=== PATIENT | male | born 1990 | race Caucasian/White ===

== ENCOUNTER 2022-02-25 14:57 | Emergency (ER) | payer SELFPAY ==
--- OUTSIDE RECORDS SUMMARY | 2022-02-25 15:00 | XMS REPORT | Continuity of Care Document ---
:1990 Author Organization [facility] t Address [address] [place] [address] Care Team Providers Name Role Phone HARESH VICK Attending Clinician Unavailable HARESH VICK Admitting Clinician Unavailable Problems This patient has no known problems. Allergies, Adverse Reactions, Alerts This patient has no known allergies or adverse reactions. Social History Smoking Status Start Date Stop Date Source Current some day smoker [facility] (LUF/GUME/SA) Medications This patient has no known medications. Vital Signs Vital Name Observation Time Observation Value Comments Source BP Systolic 2018-07-19 15:35:00 127 mm[Hg] [facility] (LUF/GUME/SA) BP Diastolic 2018-07-19 15:35:00 81 mm[Hg] [facility] (LUF/GUME/SA) Height 2018-07-19 15:35:00 66 in [facility] (LUF/GUME/SA) Weight Measured 2018-07-19 15:35:00 116.84 lbs [facility] (LUF/GUME/SA) BMI (Body Mass Index) 2018-07-19 15:35:00 19 kg/m2 [facility] (LUF/GUME/SA) Body Temperature 2018-07-19 15:35:00 98.9 F [facility] (LUF/GUME/SA) Pulse Rate 2018-07-19 15:35:00 117 /min [facility] (F/GUME/SA) Respiratory Rate 2018-07-19 15:35:00 18 /min [facility] (F/GUME/SA) O2% BldC Oximetry 2018-07-19 15:35:00 99 % [facility] (F/GUME/SA) Procedures This patient has no known procedures. Encounters Start End Encounter Admission Attending Care Care Encounter Source Date/Time Date/Time Type Type Clinicians Facility Department ID 2018-07-19 2018-07-19 UNS DISLOC 1 N[facility], [facility] [id number] [facility] 15:16:00 18:20:00 [facility]DR [facility] INITIAL [address] V/SA) [place] [address] Results Test Description Test Time Test Comments Results Result Sourc e Comments XR SHOULDER 2018-07-19 er10 Procedure: XR [facility] E[facility] T MINIMUM 2 VIEWS 17:10:51 SHOULDER MINIMUM 2 T EXAS VIEWS Exam Date: 07/19/2018 4:12 PMOrdering Provider: HARESH Rodriguezinical Indication: [id number]: Disorder of shoulderComparison: None.Findings:Bones are in normal alignment. Joint spaces preserved. No acute fracture ordislocation. No radio-opaque foreign body.Impression:No acute fracture or dislocation. No radio-opaque foreign body.This final report was electronically signed by Dr Darius Duvall DO 07/19/20185:04 PMDictated By: JORDON DUVALLate: 07/19/2018 17:04
--- NOTE | 2022-02-25 15:50 | RAD REPORT ---
EXAM DESCRIPTION: RAD - Shoulder Left 2 View - 02/25/2022 3:40 pm CLINICAL HISTORY: Left shoulder pain FINDINGS: No fracture or dislocation is seen.
--- NOTE | 2022-02-25 16:27 | EDPHYS ---
Physician Documentation [facility] Name: Sunny Sanders Age: 31 yrs Sex: Male : 1990 Arrival Date: 02/25/2022 Time: 15:03 Bed 12 Private MD: OMAR Physician Laron Choi HPI: 02/25 15:16 This 31 yrs old Male presents to ER via Ambulatory with complaints of Dislocated jmm shoulder. 15:16 The patient or guardian complains of an injury, pain. Is a 31-year-old male with no jmm known chronic medical conditions presents emerged department with complaints of left shoulder pain. Patient is concerned that his shoulder may still be dislocated. Yesterday he dislocated his shoulder and attempted to reduce it but still has pain to the left shoulder.. Historical: - Allergies: 15:24 No Known Allergies; kb3 - Home Meds: 15:24 None [Active]; kb3 - PMHx: 15:24 None; kb3 - PSHx: 15:24 None; kb3 - Immunization history:: Adult Immunizations up to date, Client reports having NOT received the Covid vaccine. - Social history:: Smoking status: Patient reports the use of cigarette tobacco products, smokes one-half pack cigarettes per day. ROS: 15:16 Constitutional: Negative for fever, chills, and weight loss, Cardiovascular: Negative jmm for chest pain, palpitations, and edema, Respiratory: Negative for shortness of breath, cough, wheezing, and pleuritic chest pain. 15:16 MS/extremity: Positive for injury or acute deformity. 15:16 All other systems are negative. Exam: 15:16 Constitutional: This is a well developed, well nourished patient who is awake, alert, jmm and in no acute distress. Head/Face: atraumatic. Eyes: EOMI, no conjunctival erythema appreciated ENT: Moist Mucus Membranes Neck: Trachea midline, Supple Chest/axilla: Normal chest wall appearance and motion. Cardiovascular: Regular rate and rhythm. No edema appreciated Respiratory: Normal respirations, no respiratory distress appreciated Abdomen/GI: Non distended Back: Normal ROM Skin: General appearance color normal 15:16 Musculoskeletal/extremity: Left shoulder mildly tender to palpation, painful abduction, full shot peen operator strength, full radial pulse, neurovascular intact.. 15:16 Neuro: Orientation: is normal, Mentation: is normal, Memory: is normal. 15:16 Psych: Behavior/mood is pleasant, cooperative. Vital Signs: 15:23 BP 117 / 77; Pulse 85; Resp 20; Pulse Ox 99% ; Weight 55.34 kg; Height 5 ft. 6 in. kb3 (167.64 cm); Pain 3/10; 15:23 Body Mass Index 19.69 (55.34 kg, 167.64 cm) kb3 MDM: 15:16 Patient medically screened. [facility] 15:52 Data reviewed: vital signs, nurses notes. Counseling: I had a detailed discussion with [facility] the patient and/or guardian regarding: the historical points, exam findings, and any diagnostic results supporting the discharge/admit diagnosis. 02/25 15:16 Order name: Shoulder Left (2 View) XRAY; Complete Time: 15:52 [facility] Administered Medications: No medications were administered Disposition: 02/26 08:10 Co-signature as Attending Physician, Laron Choi MD I agree with the assessment and latosha plan of care. Disposition Summary: 02/25/22 16:26 Discharge Ordered Location: Home [facility] Condition: Stable [facility] Diagnosis - Pain in left shoulder [facility] Followup: [facility] - With: Morteza Narayan MD - When: 2 - 3 days - Reason: Recheck today's complaints, Continuance of care, Re-evaluation by your physician Discharge Instructions: - Discharge Summary Sheet [facility] - Shoulder Pain [facility] Forms: - Medication Reconciliation Form [facility] - Thank You Letter [facility] - Antibiotic Education [facility] - Prescription Opioid Use [facility] - Work release form iw Prescriptions: - Medrol (Terrence) 4 mg Oral Tablets, Dose Pack - take 1 tablet by ORAL route as directed - follow package instructions; 1 [facility] packet; Refills: 0, Product Selection Permitted - orphenadrine citrate 100 mg Oral Tablet Sustained Release - take 1 tablet by ORAL route 2 times per day As needed; 20 tablet; Refills: 0, [facility] Product Selection Permitted Signatures: Dispatcher [employer] Laron Luu MD MD cha Mickail, Joel, PA PA jmm Bradberry, Kelly, RN RN kb3
--- NOTE | 2022-02-25 16:27 | ER ---
Nurse's Notes [facility] Name: Sunny Sanders Age: 31 yrs Sex: Male : 1990 Arrival Date: 02/25/2022 Time: 15:03 Bed 12 Private MD: Diagnosis: Pain in left shoulder Presentation: 02/25 15:23 Chief complaint: Patient states: PT reports he pooped his left shoulder out of place kb3 yesterday then popped it back in but he thinks it might not be in socket properly. Pt reports multiple dislocations of both shoulders. Coronavirus screen: Vaccine status: Patient reports being unvaccinated. Client denies travel out of the [place] in the last 14 days. Ebola Screen: Patient negative for fever greater than or equal to 101.5 degrees Fahrenheit, and additional compatible Ebola Virus Disease symptoms Patient denies exposure to infectious person. Patient denies travel to an Ebola-affected area in the 21 days before illness onset. Initial Sepsis Screen: Does the patient meet any 2 criteria? No. Patient's initial sepsis screen is negative. Does the patient have a suspected source of infection? No. Patient's initial sepsis screen is negative. Risk Assessment: Do you want to hurt yourself or someone else? Patient reports no desire to harm self or others. Onset of symptoms was February 24, 2022. 15:23 Method Of Arrival: Ambulatory kb3 15:23 Acuity: NAFISA 4 kb3 Triage Assessment: 15:24 General: Appears in no apparent distress. Behavior is calm, cooperative. Pain: kb3 Complains of pain in anterior aspect of left shoulder Pain does not radiate. Pain currently is 3 out of 10 on a pain scale. Quality of pain is described as aching. Historical: - Allergies: 15:24 No Known Allergies; kb3 - Home Meds: 15:24 None [Active]; kb3 - PMHx: 15:24 None; kb3 - PSHx: 15:24 None; kb3 - Immunization history:: Adult Immunizations up to date, Client reports having NOT received the Covid vaccine. - Social history:: Smoking status: Patient reports the use of cigarette tobacco products, smokes one-half pack cigarettes per day. Screenin:26 Abuse screen: Denies threats or abuse. Denies injuries from another. Nutritional kb3 screening: No deficits noted. Tuberculosis screening: No symptoms or risk factors identified. Fall Risk None identified. Assessment: 15:26 Reassessment: Patient appears in no apparent distress at this time. General: See triage kb3 note. Vital Signs: 15:23 BP 117 / 77; Pulse 85; Resp 20; Pulse Ox 99% ; Weight 55.34 kg; Height 5 ft. 6 in. kb3 (167.64 cm); Pain 3/10; 15:23 Body Mass Index 19.69 (55.34 kg, 167.64 cm) kb3 ED Course: 15:03 Patient arrived in ED. mr 15:04 Alexander Allen PA is PHCP. jmm 15:04 Laron Choi MD is Attending Physician. jmm 15:24 Triage completed. kb3 15:24 Arm band placed on right wrist. kb3 15:26 Patient has correct armband on for positive identification. kb3 15:26 No provider procedures requiring assistance completed. Patient did not have IV access kb3 during this emergency room visit. 15:42 Shoulder Left (2 View) XRAY In Process Unspecified. EDMS 16:26 Morteza Narayan MD is Referral Physician. jmm 17:19 Neena Bose, RN is Primary Nurse. iw Administered Medications: No medications were administered Medication: 15:26 VIS not applicable for this client. kb3 Outcome: 16:26 Discharge ordered by . jmm 17:20 Patient left the ED. Signatures: Dispatcher [employer] EDMS Alexander Allen PA PA jmm Rivera, Mary mr Neena Bose, RN Melba Ngo Fifi Childers, ALVARADO RN kb3
[2022-02-25 17:34] VITALS: BP 117/77; O2SAT 99
== END 2022-02-25 17:20 | disposition home or self-care (01) ==
LOC: ER 14:57
DX: M25.512 Pain in left shoulder (principal)
CPT/HCPCS: 99282

== ENCOUNTER 2023-09-21 17:42 | Emergency (ER) | payer OTHER, SELFPAY ==
--- OUTSIDE RECORDS SUMMARY | 2023-09-21 17:46 | XMS REPORT | Continuity of Care Document ---
Author Name Unknown Address [address] [place] [address] [facility] thconnect Address [address] [place] [address] Care Team Providers Care Bsa Officer Name Role Phone HARESH VICK Attending Clinician Unavailable HARESH VICK Admitting Clinician Unavailable Social History Smoking Status Start Date Stop Date Source Current some day smoker [facility] Vital Signs Vital Name Observation Time Observation Value Comments S ource BP Systolic 2018-07-19 15:35:00 127 mm[Hg] [facility] BP Diastolic 2018-07-19 15:35:00 81 mm[Hg] [facility] Height 2018-07-19 15:35:00 66 in [facility] S [facility] (LUF/GUME/SA) Weight Measured 2018-07-19 15:35:[address] 116[address] [facility] (LUF/GUME/SA) BMI (Body Mass Index) 2018-07-19 15:35:00 19 kg/m2 [facility] (LUF/GUME/SA) Body Temperature 2018-07-19 15:35:[address] [facility] (LUF/GUME/SA) Pulse Rate 2018-07-19 15:35:00 117 /min [facility] (LUF/GUME/SA) Respiratory Rate 2018-07-19 15:35:00 18 /min [facility] (LUF/GUME/SA) O2% BldC Oximetry 2018-07-19 15:35:00 99 % [facility] (LUF/GUME/SA) Encounters Start Date/Time End Date/Time Encounter Type Admission Type Attending Clinicians Care Facility Care Department Encounter ID Source 2018-07-19 15:16:00 2018-07-19 18:20:00 UNS DISLOC LT SHLDR [facility]INT INITIAL 1 HARESH VICK [facility], [address] [place] [address] [facility] [id number] [facility] (LUF/LI V/SA) Results Test Description Test Time Test Comments Results Resul t Comments Source XR SHOULDER MINIMUM 2 VIEWS 2018-07-19 17:10:51 er10 Procedure: XR SHOULDER MINIMUM 2 VIEWS Exam Date: 07/19/2018 4:12 PMOrdering Provider: HARESH Rodriguezinical Indication: [id number]: Disorder of shoulderComparison : None.Findings:Bone s are in normal alignment. Joint spaces preserved. No acute fracture ordislocation. No radio-opaque foreign body.Impression:No acute fracture or dislocation. No radio-opaque foreign body.This final report was electronically signed by Dr Darius Duvall DO 07/19/20185:04 PMDictated By: ESSIE DUVALLINDate: 07/19/2018 17:04 [facility]
--- NOTE | 2023-09-21 18:26 | EDPHYS ---
Physician Documentation [facility] Name: Sunny Sanders Age: 33 yrs Sex: Male : 1990 Arrival Date: 09/21/2023 Time: 17:42 Bed 10 Private MD: ED Physician Michael Garza HPI: 09/20 18:00 This 33 yrs old Male presents to ER via Ambulatory with complaints of states he has a cp Parasite that is crawling on him. 18:00 The patient or guardian complains of a rash, left volar side of forearm. cp 18:00 Context: reports rash is a parasite and that he has observed "teeth" of parasite. cp Onset: The symptoms/episode began/occurred at an unknown time. and became worse today. Treatment prior to arrival includes: no previous treatment. Associated signs and symptoms: Pertinent negatives: fever. 18:00 denies use of illegal and/or prescription drug use. cp Historical: - Allergies: 17:56 No Known Allergies; aa5 - Home Meds: 17:57 None [Active]; aa5 - PMHx: 17:56 asthma as a child; aa5 - PSHx: 17:57 None; aa5 - Immunization history:: Adult Immunizations unknown. - Infectious Disease History:: Denies. - Social history:: Smoking status: Patient reports the use of cigarette tobacco products. ROS: 18:05 Skin: Positive for rash, cp 18:05 Constitutional: Negative for fever, cp 18:05 Cardiovascular: Negative for chest pain, 18:05 Respiratory: Negative for cough, shortness of breath, wheezing, 18:05 Abdomen/GI: Negative for abdominal pain, 18:05 All other systems are negative, Exam: 18:15 Head/Face: Normocephalic, atraumatic. cp 18:15 Constitutional: The patient appears in no acute distress, alert, awake, non-diaphoretic, non-toxic, well developed, well nourished, 18:15 Chest/axilla: Inspection: normal, 18:15 Cardiovascular: Rate: tachycardic, 18:15 Respiratory: the patient does not display signs of respiratory distress, Respirations: normal, no use of accessory muscles, no retractions, labored breathing, is not present, 18:15 Skin: exam of right arm shows individual small pustule with no active draining, minimal erythema. Vital Signs: 17:55 BP 140 / 81; Pulse 109; Resp 19 S; Temp 97.6(TE); Pulse Ox 99% on R/A; Weight 49.9 kg aa5 (R); Height 5 ft. 6 in. (R); 17:55 Body Mass Index 17.75 (49.90 kg, 167.64 cm) aa5 MDM: 17:58 Patient medically screened. cp 18:25 Data reviewed: vital signs, nurses notes, and as a result, I will discharge patient. cp 18:25 Differential diagnosis: cellulitis, abscess, illegal drug use. Counseling: I had a cp detailed discussion with the patient and/or guardian regarding the historical points, exam findings, and any diagnostic results supporting the discharge/admit diagnosis, to return to the emergency department if symptoms worsen or persist or if there are any questions or concerns that arise at home. Administered Medications: No medications were administered Disposition Summary: 09/21/23 18:26 Discharge Ordered Notes: Location: Home cp Problem: new cp Symptoms: are unchanged cp Condition: Stable cp Diagnosis - Rash and other nonspecific skin eruption cp Followup: cp - With: Private Physician - When: 2 - 3 days - Reason: Recheck today's complaints Discharge Instructions: - Discharge Summary Sheet cp - Rash, Adult cp Forms: - Medication Reconciliation Form cp - Antibiotic Education cp - Prescription Opioid Use cp - Patient Portal Instructions cp - Leadership Thank You Letter cp Prescriptions: - mupirocin 2 % Topical ointment - apply 1 application TOPICAL route 3 times per day; 45 gram tube; Refills: 0, cp Product Selection Permitted Addendum: 09/22/2023 18:59 Co-signature as Attending Physician, Michael Garza MD I reviewed the patient's care r t provided by the Advanced Practice Provider and agree with the diagnosis and treatment plan. Signatures: Georgie Cherry RN RN aa5 Laron Fonseca PA PA cp Michael Garza MD MD rt
--- NOTE | 2023-09-21 18:26 | ER ---
Nurse's Notes [facility] Name: Sunny Sanders Age: 33 yrs Sex: Male : 1990 Arrival Date: 09/21/2023 Time: 17:42 Bed 10 Private MD: Diagnosis: Rash and other nonspecific skin eruption Presentation: 09/20 17:55 Chief complaint: Patient states: "I feel like I have a parasite that is crawling inside aa5 of me". Pt reports sores all over body and generalized weakness. Coronavirus screen: At this time, the client does not indicate any symptoms associated with coronavirus-19. Ebola Screen: Patient denies travel to an Ebola-affected area in the 21 days before illness onset. Initial Sepsis Screen: Does the patient meet any 2 criteria? No. Patient's initial sepsis screen is negative. Does the patient have a suspected source of infection? No. Patient's initial sepsis screen is negative. Risk Assessment: Do you want to hurt yourself or someone else? Patient reports no desire to harm self or others. Onset of symptoms was August 2023. 17:55 Acuity: NAFISA 3 aa5 17:55 Method Of Arrival: Ambulatory aa5 Historical: - Allergies: 17:56 No Known Allergies; aa5 - Home Meds: 17:57 None [Active]; aa5 - PMHx: 17:56 asthma as a child; aa5 - PSHx: 17:57 None; aa5 - Immunization history:: Adult Immunizations unknown. - Infectious Disease History:: Denies. - Social history:: Smoking status: Patient reports the use of cigarette tobacco products. Screenin:46 [facility] ED Fall Risk Assessment (Adult) History of falling in the last 3 months, tl4 including since admission No falls in past 3 months (0 pts) Confusion or Disorientation No (0 pts) Intoxicated or Sedated No (0 pts) Impaired Gait No (0 pts) Mobility Assist Device Used No (0 pt) Altered Elimination No (0 pt) Score/Fall Risk Level 0 - 2 = Low Risk Oriented to surroundings, Maintained a safe environment, Educated pt \\T\\ family on fall prevention, incl call for assistance when getting out of bed, Assessed \\T\\ reinforced patient's understanding of fall precautions. Abuse screen: Denies threats or abuse. Denies injuries from another. Nutritional screening: No deficits noted. Tuberculosis screening: No symptoms or risk factors identified. Assessment: 18:42 General: Appears in no apparent distress. Behavior is cooperative. Pain: Denies pain. tl4 Neuro: Level of Consciousness is awake, alert, obeys commands, Oriented to person, place, time, situation, Moves all extremities. Full function Speech is normal. Cardiovascular: Capillary refill < 3 seconds Patient's skin is warm and dry. Respiratory: Airway is patent Respiratory effort is even, unlabored, Respiratory pattern is regular, symmetrical. GI: No signs and/or symptoms were reported involving the gastrointestinal system. : No signs and/or symptoms were reported regarding the genitourinary system. EENT: No signs and/or symptoms were reported regarding the EENT system. Derm: No signs and/or symptoms reported regarding the dermatologic system. Musculoskeletal: No signs and/or symptoms reported regarding the musculoskeletal system. 18:49 Reassessment: Pt refused discharge vital signs and to sign the discharge paperwork. tl4 Vital Signs: 17:55 BP 140 / 81; Pulse 109; Resp 19 S; Temp 97.6(TE); Pulse Ox 99% on R/A; Weight 49.9 kg aa5 (R); Height 5 ft. 6 in. (R); 17:55 Body Mass Index 17.75 (49.90 kg, 167.64 cm) aa5 ED Course: 17:47 Patient arrived in ED. ra3 17:49 Laron Fonseca PA is PHCP. cp 17:49 Michael Garza MD is Attending Physician. cp 17:55 Arm band placed on. aa5 17:56 Triage completed. aa5 18:31 Garth Hill, ALVARADO is Primary Nurse. tl4 18:47 Patient has correct armband on for positive identification. Bed in low position. Call tl4 light in reach. Side rails up X 1. Provided Education on: ed process, call maldonado. Door closed. Noise minimized. Moved to private room. 18:49 No provider procedures requiring assistance completed. Patient did not have IV access tl4 during this emergency room visit. Administered Medications: No medications were administered Medication: 18:46 VIS not applicable for this client. tl4 Outcome: 18:26 Discharge ordered by . cp 18:55 Discharged to home ambulatory, tl4 18:55 Condition: stable 18:55 Discharge instructions given to patient, Instructed on discharge instructions, follow up and referral plans. medication usage, Demonstrated understanding of instructions, follow-up care, medications, Prescriptions given X 1, 18:56 Patient left the ED. tl4 Signatures: Georgie Cherry, RN RN aa5 Laron Fonseca PA PA Garth Bhardwaj RN RN tl4 Neris Orta 3
[2023-09-21 19:17] VITALS: BP 140/81; TEMP 97.6; O2SAT 99
== END 2023-09-21 18:56 | disposition home or self-care (01) ==
LOC: ER 17:42
DX: R21 Rash and other nonspecific skin eruption (principal); Z72.0 Tobacco use
CPT/HCPCS: 99283